=== PATIENT | male | born 1950 | race Caucasian/White ===

== ENCOUNTER → 2016-05-07 | Outpatient (CLI) | payer OTHER, MEDICARE | LOC: FIMAGING 07:26 | PROVIDERS: ATTEND Radiology Diagnostic Radiology | DX: I82.592 Chronic embolism and thrombosis of other specified deep vein of left lower extremity (principal); I82.532 Chronic embolism and thrombosis of left popliteal vein; I87.2 Venous insufficiency (chronic) (peripheral); R60.9 Edema, unspecified ==

== ENCOUNTER → 2017-03-17 | Outpatient (CLI) | payer OTHER, MEDICARE ==
[~2017-03-17] MED LIST: IOPAMIDOL (ISOVUE-370) 150 ML BTL IV ONE
== END ==
LOC: CIMAGING 10:47
PROVIDERS: ATTEND Surgery
DX: I73.9 Peripheral vascular disease, unspecified (principal); M25.552 Pain in left hip; I83.812 Varicose veins of left lower extremity with pain; L03.116 Cellulitis of left lower limb; K80.20 Calculus of gallbladder without cholecystitis without obstruction; K57.30 Diverticulosis of large intestine without perforation or abscess without bleeding
CPT/HCPCS: 75635; Q9967

== ENCOUNTER → 2017-05-01 | Outpatient (CLI) | payer OTHER, MEDICARE | LOC: FIMAGING 07:21 | PROVIDERS: ATTEND Surgery | DX: I87.2 Venous insufficiency (chronic) (peripheral) (principal) ==